=== PATIENT | female | born 1970 | race African-American/Black ===

== ENCOUNTER 2025-02-13 23:56 | Emergency (ER) | payer MEDICAID, OTHER | END 2025-02-14 00:30 | disposition home or self-care (01) | LOC: NAV ERS 23:56 | DX: B02.9 Zoster without complications (principal); E11.42 Type 2 diabetes mellitus with diabetic polyneuropathy; Z79.84 Long term (current) use of oral hypoglycemic drugs | CPT/HCPCS: 99283 ==